=== PATIENT | female | born 1945 | race Caucasian/White ===

== ENCOUNTER 2025-03-01 05:49 | Emergency (ER) | payer MEDICARE, OTHER ==
[2025-03-01 05:55] VITALS: TEMP 98.8
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
[2025-03-01 06:33] LABS: BASOPHIL % 0.4 % (0.1-1.2); Basophil (Absolute #) 0.04 x10^3/uL (0.01-0.08); Eosinophil (Absolute #) 0.09 x10^3/uL (0.04-0.36); Hematocrit 24.6 % (34.1-44.9); Hemoglobin 8.1 g/dL (11.2-15.7); IMMATURE GRAN # 0.22 x10^3u/L (0.001-0.031); IMMATURE GRAN % 2.0 % (0.001-0.429); Lymphocyte (Absolute #) 1.56 x10^3/uL (1.18-3.74); Mean Corpuscular Hemoglobin 33.3 pg (25.6-32.2); Mean Corpuscular Hgb Concent. 32.9 g/dL (32.2-35.5); Monocyte (Absolute #) 2.02 x10^3/uL (0.24-0.86); NUCLEATED RBC # 0.00 x10^3u/L (0.00-0.012); NUCLEATED RBC % 0.0 % (0.00-0.2); Platelet Count 383 x10^3/uL (182-369); Red Blood Count 2.43 x10^6/uL (3.93-5.22); White Blood Count 11.2 x10^3/uL (3.98-10.04)
[2025-03-01] MEDS ORDERED: TYLENOL 325 MG ONE (06:33)
[2025-03-01] MEDS: TYLENOL 325 MG PO ONE (06:37)
[2025-03-01 07:07] LABS: Calcium 8.5 mg/dL (8.4-10.2); Carbon Dioxide 28.0 mmol/L (22-30); Creatinine 1 1.05 mg/dL (0.52-1.04); EST GLOMERULAR FILTRATION RATE 53.4 ML/MIN; Glucose 81.0 mg/dL (74-106); Potassium 3.7 mmol/L (3.5-5.1); SGOT/AST 45.0 U/L (14-36); SGPT/ALT 18.0 U/L (0-35); Total Protein 5.9 g/dL (6.3-8.2)
[2025-03-01 07:18] LABS: Slide Review 1 YES
[2025-03-01 07:37] LABS: Glucose, Urine Negative (Negative); Protein,Urine Dip Trace (Negative); RBC 0-2 /HPF (0-5); WBC >100 /HPF (0-5)
[2025-03-01] MEDS ORDERED: ROCEPHIN 1 GM / 100 ML NaCl 1 GM/100 ML IVPB IV ONE (08:35)
[2025-03-01] MEDS: ROCEPHIN 1 GM / 100 ML NaCl 1 GM/100 ML IVPB IV ONE (08:39)
--- NOTE | 2025-03-01 08:50 | XRAY ---
Indication: Pain following fall. Multiple contiguous axial images obtained through the head without contrast. Comparison: None Age-appropriate global atrophy, moderate periventricular degenerative microischemia bilaterally, and remote lacunar infarct right basal ganglia. No acute intracranial hemorrhage, abnormal extra-axial fluid collection, or mass effect. 4th ventricle is midline without hydrocephalus. Bony calvarium intact. Visualized paranasal sinuses and mastoid air cells are clear. Impression: Nonacute senile brain with remote lacunar infarct right basal ganglia.
--- NOTE | 2025-03-01 08:55 | XRAY ---
Indication: Pain following fall. History lung cancer. Multiple contiguous axial images obtained through the cervical spine. Sagittal and coronal reformatted images obtained. Comparison: None Osseous structures demineralized. Axial images negative for acute fracture, suspicious bony lesions, or spinal canal stenosis. Mild/moderate multilevel degenerative spondylosis greatest at C5-C6. Sagittal and coronal reformatted images demonstrates normal cervical alignment with C5-C7 disc space narrowing. No acute compression fracture, subluxation, or jumped facet. Normal appearing craniocervical junction. Visualized noncontrasted soft tissues demonstrates mild bilateral carotid calcifications. Lung apices demonstrates incompletely visualized extensive right lung pleural parenchymal consolidating opacities presumed related to known lung cancer. Impression: 1. Negative acute fracture/subluxation. 2. Chronic findings including osteopenia, multilevel degenerative spondylosis, carotid calcifications, and presumed right lung cancer.
--- NOTE | 2025-03-01 08:58 | XRAY ---
Indication: Pain following fall. History lung cancer. Multiple contiguous axial images obtained through the thoracic spine. Sagittal and coronal reformatted images obtained. Comparison: CT chest October 31, 2019 New finding for remote appearing T9 compression fracture with near complete collapse without spinal canal or foraminal encroachment. There remains osteopenia, mild/moderate multilevel degenerative spondylosis, and tiny L1 bone island. Sagittal and coronal reformatted images demonstrates normal thoracic alignment with C5-C7 disc space narrowing. Visualized noncontrasted soft tissues demonstrates new incompletely visualized extensive right lung pleural parenchymal consolidating opacities presumed related to known lung cancer with incidental right chest tube in Situ. Again a few left lung metastatic nodules. Again extensive coronary calcifications, mild scattered aortic calcifications, and nonobstructing right renal punctate calculus. Impression: 1. Negative acute fracture/subluxation. 2. Chronic findings including osteopenia, multilevel degenerative spondylosis, remote T9 compression fracture, tiny L1 bone island, arteriosclerotic disease, nonobstructing right renal punctate calculus, metastatic pulmonary nodules, and presumed right lung cancer.
[2025-03-01 09:03] VITALS: BP 133/78; PULSE 101; RESP 15; O2SAT 98
== END 2025-03-01 09:30 ==
LOC: ED 05:49
DX: M54.2 Cervicalgia (principal); R51.9 Headache, unspecified; M54.9 Dorsalgia, unspecified; W06.XXXA Fall from bed, initial encounter; D64.9 Anemia, unspecified; N39.0 Urinary tract infection, site not specified
CPT/HCPCS: 36415; 70450; 72125; 72128; 80053; 81001; 84484; 85025; 87077; 87086; 87186; 93005; 96361; 96365; 99285; P9612